=== PATIENT | female | born 1980 | race Caucasian/White ===

== ENCOUNTER 2016-07-12 20:33 | Emergency (ER) | payer OTHER ==
[~2016-07-12] VITALS: Ht 149.9 cm; Wt 59.4 kg
[~2016-07-12 20:33] MED LIST: AUGM875T PO; CLIN1CAP5 PO; DIFL150T PO; MEDR4PAK3 PO; MELO15TA2 PO; METO25 PO; PRED20 PO; VENL75 PO
[2016-07-12 20:36] VITALS: BP 154/101; PULSE 101; RESP 18; TEMP 98.5; O2SAT 98
[2016-07-12] MEDS ORDERED: FENO1TAB39 PO (20:45)
[2016-07-12] MEDS ORDERED: METO25TA3 PO (20:45)
[2016-07-12] MEDS ORDERED: EFFE150C PO (20:45)
[2016-07-12] MEDS ORDERED: CLINDAMYCIN INJ 600 MG in SODIUM CHLORIDE 0.9% INJ 100 ML IV ONE (21:15)
[2016-07-12] MEDS ORDERED: ACETAMINOPHEN/HYDROcodone 325 MG/5 MG TAB PO ONE (21:15)
[2016-07-12 22:10] VITALS: BP 146/87; PULSE 89; RESP 16; O2SAT 97
[2016-07-12 22:39] VITALS: RESP 16
--- NOTE | 2016-07-12 22:46 | PD ---
HPI Chief Complaint: Oral / Dental Pain or Problem Time Seen by Provider: 20:54 Travel History International Travel<30 days: No Contact w/Intl Traveler<30days: No Traveled to known affect area: No History of Present Illness HPI Patient is a 36 year old female complaining of pain to her left lower jaw. Patient states she had all of her teeth pulled in April secondary to osteomyelitis of her jaw. She says she has been wearing dentures for the past month, and has not been an issue until today when she noticed severe pain. He says he is unable to eat secondary to the pain, and has not been able to wear her dentures. She denies any fever or chills. She denies any issues with swallowing. She has not noticed any leakage of fluids in her mouth. PFSH Past Medical History Asthma: No Autoimmune Disease: No Anxiety: Yes (REPORTS PANIC DISORDER X 3 YEARS) Cancer: No Cardiovascular Problems: Yes (endocarditis) Chest Pain: No COPD: No Cerebrovascular Accident: No Diminished Hearing: No Gastrointestinal Disorders: Yes (GALLSTONES) Genitourinary: Yes Headaches: Yes Hypertension: No Kidney Stones: No Musculoskeletal: Yes (osteomyelitis in jaw) Neurologic: Yes (TIGEMINAL NEURALGIA) Psychiatric: No Reproductive: No Respiratory: No Immunizations Current: Yes Migraines: Yes Renal Failure: No Seizures: No Sleep Apnea: No Thyroid Disease: No Influenza Vaccination: Yes ?: Not : 6 Para: 5 Miscarriage: 1 Past Surgical History Abdominal Surgery: No AICD: No Cardiac Surgery: No Cholecystectomy: Yes (2006) Ear Surgery: No Endocrine Surgery: No Eye Surgery: No Genitourinary Surgery: No Gynecologic Surgery: No Hysterectomy: Yes (2011) Neurologic Surgery: No Oral Surgery: Yes (ALL TEETH REMOVED) Pacemaker: No Thoracic Surgery: No Other Surgery: Yes Social History Alcohol Use: No Tobacco Use: No (QUIT AUG 2015) Substance Use: No Allergies-Medications (Allergen,Severity, Reaction): Coded Allergies: Sulfa (Verified Allergy, Severe, SOB, THROAT SWELLING, 07/12/16) Reported Meds & Prescriptions Reported Meds & Active Scripts Active Lortab (Hydrocodone-Acetaminophen) 5-325 Mg Tab 1 Tab PO Q6H PRN Clindamycin (Clindamycin HCl) 150 Mg Cap 450 Mg PO Q6H 7 Days Reported Fenofibrate 120 Mg Tab 120 Mg PO DAILY Effexor XR 24 HR (Venlafaxine HCl) 150 Mg Cap 150 Mg PO DAILY Metoprolol Tartrate 25 Mg Tab 25 Mg PO DAILY Review of Systems Except as stated in HPI: all other systems reviewed are Neg General / Constitutional: No: Fever, Chills HENT: Positive: Dental Difficulties, No: Headaches, Lightheadedness Cardiovascular: No: Chest Pain or Discomfort Respiratory: No: Cough, Shortness of Breath Gastrointestinal: No: Nausea, Vomiting Musculoskeletal: No: Pain Skin: No Rash, No Change in Pigmentation Physical Exam Narrative GENERAL: Awake and alert in no acute distress. SKIN: Warm and dry. HEAD: Atraumatic. Normocephalic. EYES: Pupils equal and round. No scleral icterus. ENT: Mucous membranes pink and moist. Small area of swelling and erythema the left lower jaw. No fluctuance. No active drainage. Pharynx is within normal limits. NECK: Trachea midline. No JVD. CARDIOVASCULAR: Regular rate and rhythm. No murmur appreciated. RESPIRATORY: No accessory muscle use. Clear to auscultation. Breath sounds equal bilaterally. MUSCULOSKELETAL: No obvious deformities. No clubbing. No cyanosis. No edema. NEUROLOGICAL: Awake and alert. No obvious cranial nerve deficits. Motor grossly within normal limits. Normal speech. PSYCHIATRIC: Appropriate mood and affect; insight and judgment normal. Data Data Last Documented VS Vital Signs Date Time Temp Pulse Resp B/P Pulse Ox O2 Delivery O2 Flow Rate FiO2 07/12/16 22:39 16 07/12/16 22:10 89 146/87 97 Room Air 07/12/16 20:36 98.5 Orders Clindamycin Inj (Cleocin Inj) (07/12/16 21:15) Acetamin-Hydrocod 325-5 Mg (Celestine 5-325 (07/12/16 21:15) [facility] Medical Decision Making Medical Screen Exam Complete: Yes Emergency Medical Condition: Yes Medical Record Reviewed: Yes Differential Diagnosis Dental abscess versus gum infection versus irritation from dentures Narrative Course Patient is a 36-year-old female comes in complaining of pain to her left lower jaw. Exam shows area of irritation likely from her dentures. There is no defined abscess. Patient given pain medicine as well as a dose of clindamycin. Will be discharged with pain medicine and prescription for clindamycin. Advised follow-up with her dentist. Advised to return to the ED as a for any worsening symptoms. Advised to keep her dentures out for the next few days as infection heals. Diagnosis Primary Impression: Superficial injury of gingiva with infection Patient Instructions: Dental Abscess (ED), General Instructions Additional Instructions: Follow up with a dentist. Take Ibuprofen for pain, take the Lortab for severe pain. Take all of your antibiotics. Return to the ED as needed for any worsening symptoms. Scripts Hydrocodone-Acetaminophen (Lortab)5-325 Mg Tab1 Tab PO Q6H PRN (PAIN) #12 TAB Ref 0 Prov:Pooja Olmedo MD 07/12/16 Clindamycin 150 Mg [id number] Mg PO Q6H 7 Days Ref 0 Prov:Pooja Olmedo MD 07/12/16 Disposition: 01 DISCHARGE HOME Condition: Stable Pooja Olmedo MD Jul 12, 2016 22:46
[2016-07-12] MEDS ORDERED: HYDR-3533 PO (22:53)
[2016-07-12] MEDS ORDERED: CLIN1CAP5 PO (22:53)
== END 2016-07-12 23:05 | disposition home or self-care (01) ==
LOC: PHED 20:33
DX: K05.10 Chronic gingivitis, plaque induced (principal); Z86.19 Personal history of other infectious and parasitic diseases; Z87.891 Personal history of nicotine dependence; M27.63 Post-osseointegration mechanical failure of dental implant
CPT/HCPCS: 96365